=== PATIENT | male | born 1980 | race Hispanic/Latino ===

== ENCOUNTER 2023-05-19 22:35 | Emergency (ER) | payer OTHER, SELFPAY ==
[2023-05-19 22:36] VITALS: BP 156/91
[2023-05-19 22:52] LABS: Urine Albumin Trace (Neg - Trace); Urine Bilirubin Negative (Negative); Urine Character Slightly Cloudy (Clear); Urine Color Yellow; Urine Glucose Negative (Negative); Urine Ketone Negative (Negative); Urine Leukocyte Negative (Negative); Urine Nitrite Negative (Negative); Urine Occult Blood 4+ (Negative); Urine Urobilinogen Negative (Neg - 1+)
[2023-05-19 23:00] LABS: Urine Red Blood Cell >100 /HPF (0-2); Urine Squamous Cell 0-2 /LPF (Few)
[2023-05-19 23:01] LABS: Urine White Cell None Seen /HPF (0-5)
--- NOTE | 2023-05-19 23:19 | ED.GENMED ---
History of Present Illness
General
Chief Complaint: Flank Pain
Source: patient
Exam Limitations: none
Time Seen by Provider: 05/19/23 23:11
Nursing documentation reviewed up to this point in time: agreed with
Travel History
Have you had any contact with someone who has COVID-19?: No
Do you have any symptoms of coronavirus? Fever > 100 degrees, chills, cough, shortness of breath, sore throat, loss of taste or smell, muscle aches, or headache?: No
History of Present Illness
History of Present Illness:
This a pleasant 42-year-old male that presents with left flank pain. He states that the pain began yesterday but has been progressively worsening throughout the day today. At 830 the pain got worse so he came into the emergency department.
Patient states that this pain is similar to previous kidney stones. He has had complicated kidney stones in the past. He was concerned today because of the blood that he was urinating. He did not take any medicine for the pain. Denies fever,
chills does report some nausea without vomiting. He does not smoke but he does vape.
Past History
Past History
ED Past Medical History: Other (Dizziness, ); Negative HTN, Hypercholesterolemia or NIDDM
ED Past Surgical History: Orthopedic (Right shoulder surgery)
Social History
Tobacco: Vaping
Alcohol: None
Drug: None
Personal:
Living: with family
Review of Systems
Review of Systems
Allergies reviewed?: Yes
Other source history: family
All Other Systems: ROS reviewed and negative except as documented in HPI and ROS
Constitutional: Reports no symptoms
EENT: Reports no symptoms
Respiratory: Reports no symptoms
Cardiac: Reports no symptoms
ABD/GI: Reports no symptoms
: Reports bleeding
Musculoskeletal: Reports back pain
Skin: Reports no symptoms
Neurological: Reports no symptoms
Endocrine: Reports no symptoms
Hematologic/Lymphatic: Reports no symptoms
Psychiatric: Reports anxiety
Phy Exam
General Physical Exam
General Presentation: well appearing and no apparent distress
General Skin: warm and dry
General Habitus: normal
General Mental: alert
General Hydration: appears well hydrated
ENT Exam
ENT Exam: EOMI, pharynx normal, neck supple and normocephalic
Eye Exam
Eye Exam: PERRL, cornea clear and conjunctiva normal
Cardiovascular Exam
Cardiovascular Exam: regular rate/rhythm, no edema, no murmur and normal peripheral pulses
Pulmonary Exam
Pulmonary Exam: lungs clear, no respiratory distress, no rales, no crackles, no rhonchi, no stridor, no wheezing and no cough
Gastrointestinal Exam
Gastrointestinal Exam: normal bowel sounds, non tender, soft, no organomegaly, no pulsatile mass and non distended
Neurological Exam
Neurological Exam: alert, oriented x3, no motor deficits and speech normal
Musculoskeletal Exam
Musculoskeletal Exam: full ROM and no edema
Skin Exam
Skin Exam: normal color, warm/dry, no rash and no petechia
Psychiatric Exam
Psychiatric Exam: normal mood/affect
Course
Orders/Labs/Results
Orders:
Orders
05/19/23 22:43
Urinalysis Reflex To Culture Urgent
Date Specimen was Collected: 05/19/23
Time Specimen was Collected: 22:41
Urine Microscopic Reflex Cult Urgent
05/19/23 23:18
CT Abd/pel Without Iv Or Oral Urgent
Comment:
Reason For Exam: Left flank pain, hematuria
0.9% Sodium Chloride 1000 ml [Nss] 1,000 ml IV BOLUS
HYDROmorphone [Dilaudid] 0.5 mg IV NOW STA
Ketorolac [Toradol] 15 mg IV NOW STA
Ondansetron Injectable [Zofran] 4 mg IV NOW STA
05/19/23 23:34
Complete Blood Count/With Diff Urgent
Comprehensive Metabolic Panel Urgent
Abnormal Lab Results
05/19/23 05/19/23
22:43 23:34
Absolute Monos (auto) 0.8 H 10^3/uL
(0.1-0.6)
Sodium 134 L mmol/L
(135-145)
BUN 23 H mg/dl
(9-20)
Glucose 122 H mg/dl
(70-99)
Alkaline Phosphatase 134 H U/L
(38-126)
Ur Occult Blood Reflex 4+ A
(Negative)
Urine RBC >100 A /HPF
(0-2)
05/19/23 23:34
05/19/23 23:34
Vital Signs
Initial and Last Documented VS:
Initial Vital Signs
Temp Pulse Resp BP Pulse Ox
98.8 F 78 18 156/91 98
05/19/23 22:36 05/19/23 22:36 05/19/23 22:36 05/19/23 22:36 05/19/23 22:36
Last Documented Vital Signs
Temp Pulse Resp BP Pulse Ox
98.8 F 78 18 134/111 97
05/19/23 22:36 05/19/23 22:36 05/19/23 22:36 05/20/23 00:00 05/20/23 00:08
*Critical Care Note
Total Time (30-74mins, 75-104mins- exclusive of procedures): Not Applicable
Update Note
Update Note:
CT abdomen/pelvis without contrast
Comparison exam CT abdomen/pelvis 01/03/2020
IMPRESSION:
3 mm obstructing stone distal left ureter resulting in mild left-sided hydronephrosis and hydroureter to the level of the stone. There is mild stranding on the left kidney and ureter which may be due to obstruction and/or infection. Please
correlate with urinalysis.
Case discussed with Dr. Frias at 12:!2 am ET.
ED Attending Note
-
Portions of this chart may have been created with voice recognition software.� Occasional wrong word or��sound alike� substitutions may have occurred due to the inherent limitations of voice recognition software.
Discharge Plan
Departure
Patient Disposition: Home (Routine Discharge)
Date of Disposition: 05/20/23
Time of Disposition: 00:19
Patient with high blood pressure during this ER visit?: Yes
Condition: Good
Discharge Problem:
Kidney stones
Instructions: Flank Pain (DC), How to Strain Your Urine, BLOOD PRESSURE, Narcotic Pain Medication
Prescriptions:
New
oxycodone-acetaminophen [Percocet] 5-325 mg tablet
1 tab PO Q6HPRN PRN (Reason: pain) Qty: 10 0RF
tamsulosin [Flomax] 0.4 mg capsule
0.4 mg PO DAILY Qty: 10 0RF
diclofenac sodium 75 mg tablet,delayed release (DR/EC)
75 mg PO BID Qty: 10 0RF
No Action
azithromycin 250 MG tablet
250 mg PO DAILY Qty: 4 0RF
methylprednisolone [Medrol (Ino)] 4 MG tablets,dose pack
4 tab PO . DIRECT Qty: 1 0RF
oxycodone-acetaminophen 5 MG/325 MG tablet
1 tab PO Q6HPRN PRN (Reason: pain) Qty: 12 0RF
tamsulosin 0.4 MG capsule
0.4 mg PO DAILY Qty: 7 0RF
ondansetron 4 MG tablet,disintegrating
4 mg PO TIDPRN PRN (Reason: nausea/vomiting) Qty: 12 0RF
meclizine [Antivert] 50 mg tablet
50 mg PO BID PRN (Reason: dizziness) Qty: 10 0RF
Referrals:
NONE,* [Family Provider] -
Flynn Katz MD [Active] - As needed
Activity Restrictions/Additional Instructions:
Your prescriptions were sent to the pharmacy you requested.
It was a pleasure meeting you and taking part in your care. We hope for your continued healing and wellness.
Please read discharge instructions in their entirety. However, they are for general education and may not describe your exact diagnosis at discharge. Information on your ER visit and medical conditions were discussed with you along with appropriate
follow up information...
If indicated, please take your medications as instructed and indicated on discharge paperwork.
Please schedule a follow up appointment as directed. Call to schedule an appointment
Please return to the emergency department with ANY change in, persisting, or worsening of symptoms. If any of your symptoms do not improve, or persist, or become more severe within 6-12 hours, please return to the emergency department for further
care.
Please return to the emergency department if you develop a headache, neck pain/stiffness, fever greater than 100.4F, chest pain, shortness of breath, persistent nausea, vomiting, slurred speech, difficulty walking, numbness/tingling, weakness, signs
of infection or any other symptoms that are worrisome to you.
If you have any questions or concerns please do not hesitate to call the Hospital at or E-mail me directly at [email or web address]
Interventions
Interventions:
*Risk Screen - Suicide Last Done: 05/19/23 22:36
*General Assessment Last Done: 05/19/23 22:36
*Neglect/Abuse Screening Last Done: 05/19/23 22:36
ED- Fall Risk Assessment Last Done: 05/20/23 00:08
*ED COVID-19 Vaccine History Last Done: 05/19/23 22:36
*Nursing Disposition Last Done: 05/20/23 00:38
XD-Csodly-Rwzlhtvnxx Assessment Last Done: 05/20/23 00:08
ED-Male Genitourinary Assessment Last Done: 05/20/23 00:08
Discharge Date and Time
Discharge Date/Time: 05/20/23 00:45
[2023-05-19] MEDS: ZOFRAN 4 MG IV (23:37)
[2023-05-19] MEDS: NSS 1000 IV (23:38)
[2023-05-19] MEDS: TORADOL 15 MG IV (23:39)
[2023-05-19] MEDS: DILAUDID 0.5 MG IV (23:41)
[2023-05-19 23:44] LABS: % Basophils 0.4 % (0-2); % Eosinophils 2.1 % (0-6); % Immature Granulocytes 0.3 % (0-0.5); % Lymphocytes 32.4 % (20.5-51.1); % Neutrophils 56.8 % (42.2-75.2); Absolute Eosinophils 0.2 10^3/uL (0-0.7); Absolute Lymphocytes 3.1 10^3/uL (1.2-3.4); Absolute Monocytes 0.8 10^3/uL (0.1-0.6); Absolute Neutrophils 5.5 10^3/uL (1.4-6.5); Hematocrit 40.1 % (39.0-52.0); Hemoglobin 14.5 g/dL (13.0-18.0); Mean Corp Hgb Conc. 36.2 g/dL (33.0-37.0); Mean Corpuscular Hgb 30.2 pg (27.0-31.0); Mean Corpuscular Volume 83.5 fL (80.0-94.0); Nucleated Red Blood Cells % 0 % (-); Platelet Count 229 10^3/uL (130-400); Red Cell Dist. Width 12.9 % (11.5-14.5); White Blood Cell Count 9.6 10^3/uL (4.8-10.8)
[2023-05-19 23:54] VITALS: BP 134/67; BMI 32.9
[2023-05-20] VITALS: BP 134/111
[2023-05-20 00:41] LABS: ALT (SGPT) 36 U/L (0-50); AST (SGOT) 33 U/L (17-59); Albumin 4.1 g/dl (3.5-5.0); Alkaline Phosphatase 134 U/L (38-126); Blood Urea Nitrogen 23 mg/dl (9-20); Calcium 8.8 mg/dl (8.4-10.2); Carbon Dioxide 22 mmol/L (22-30); Chloride 106 mmol/L (98-107); Estimated Creatinine Clearance 93 ml/min; Glucose 122 mg/dl (70-99); Potassium 4.1 mmol/L (3.5-5.1); Sodium 134 mmol/L (135-145); Total Bilirubin 0.5 mg/dl (0.2-1.3); Total Protein 6.6 g/dl (6.3-8.2); eGFR > 60.00
== END 2023-05-20 00:45 | disposition home or self-care (01) ==
LOC: EMR 22:35
PROVIDERS: EMERGENCY PHYSICIAN Student in an Organized Health Care Education/Training Program
DX: N13.2 Hydronephrosis with renal and ureteral calculous obstruction (principal); R10.9 Unspecified abdominal pain; M54.9 Dorsalgia, unspecified; E11.9 Type 2 diabetes mellitus without complications; F17.290 Nicotine dependence, other tobacco product, uncomplicated; Z87.442 Personal history of urinary calculi
CPT/HCPCS: 99285; 96374; 96375 ×2; 96361; 74176; 80053; 81003; 81015; 85025

== ENCOUNTER 2023-05-23 20:45 | Emergency (ER) | payer OTHER, SELFPAY ==
[2023-05-23 20:46] VITALS: BP 166/113
[2023-05-23 21:10] VITALS: BMI 33.8
[2023-05-23 21:27] LABS: % Basophils 0.4 % (0-2); % Immature Granulocytes 0.3 % (0-0.5); % Lymphocytes 38.2 % (20.5-51.1); % Monocytes 6.9 % (1.7-9.3); % Neutrophils 52.2 % (42.2-75.2); Absolute Eosinophils 0.2 10^3/uL (0-0.7); Absolute Lymphocytes 3.5 10^3/uL (1.2-3.4); Absolute Monocytes 0.6 10^3/uL (0.1-0.6); Absolute Neutrophils 4.7 10^3/uL (1.4-6.5); Hematocrit 41.2 % (39.0-52.0); Hemoglobin 14.8 g/dL (13.0-18.0); Mean Corp Hgb Conc. 35.9 g/dL (33.0-37.0); Mean Corpuscular Volume 83.4 fL (80.0-94.0); Mean Platelet Volume 8.9 fL (7.4-10.4); Nucleated Red Blood Cells % 0 % (-); Platelet Count 246 10^3/uL (130-400); Red Blood Cell Count 4.94 10^6/uL (4.70-6.10); White Blood Cell Count 9.1 10^3/uL (4.8-10.8)
[2023-05-23 21:50] LABS: Troponin I < 0.012 ng/ml
[2023-05-23 21:58] LABS: ALT (SGPT) 31 U/L (0-50); AST (SGOT) 32 U/L (17-59); Albumin 3.9 g/dl (3.5-5.0); Alkaline Phosphatase 110 U/L (38-126); Blood Urea Nitrogen 17 mg/dl (9-20); Calcium 9.2 mg/dl (8.4-10.2); Carbon Dioxide 21 mmol/L (22-30); Chloride 101 mmol/L (98-107); Estimated Creatinine Clearance 100 ml/min; Glucose 196 mg/dl (70-99); Sodium 133 mmol/L (135-145); Total Bilirubin 0.5 mg/dl (0.2-1.3); Total Protein 6.7 g/dl (6.3-8.2); eGFR > 60.00
[2023-05-23 22:00] VITALS: BP 139/78
[2023-05-23] MEDS: NSS 1000 IV (22:45)
[2023-05-23 22:53] LABS: Urine Albumin Negative (Neg - Trace); Urine Bilirubin Negative (Negative); Urine Character Clear (Clear); Urine Color Yellow; Urine Glucose Negative (Negative); Urine Ketone Negative (Negative); Urine Leukocyte Negative (Negative); Urine Nitrite Negative (Negative); Urine Occult Blood 1+ (Negative); Urine Urobilinogen Negative (Neg - 1+)
[2023-05-23 23:00] VITALS: BP 132/87
[2023-05-23 23:00] LABS: Urine Squamous Cell 0-2 /LPF (Few)
[2023-05-23 23:01] LABS: Urine White Cell None Seen /HPF (0-5)
[2023-05-23 23:24] VITALS: BP 137/85
[2023-05-23 23:25] VITALS: BP 150/96
[2023-05-23 23:27] VITALS: BP 132/87; BP 137/85; BP 150/96; PULSE 62; PULSE 69; PULSE 74
--- NOTE | 2023-05-23 23:47 | ED.GENMED ---
History of Present Illness
General
Chief Complaint: Dizziness
Source: patient and previous hospital records (ED visit February 2023 for somewhat very similar complaint. Unremarkable workup at that time including EKG, labs/troponin, CT of the head.)
Exam Limitations: none
Time Seen by Provider: 05/23/23 23:06
Nursing documentation reviewed up to this point in time: agreed with
Travel History
Have you had any contact with someone who has COVID-19?: No
Do you have any symptoms of coronavirus? Fever > 100 degrees, chills, cough, shortness of breath, sore throat, loss of taste or smell, muscle aches, or headache?: No
History of Present Illness
History of Present Illness:
This is a 42-year-old gentleman who has history of intermittent positional dizziness, as well as history of kidney stones. He takes no medicines on a daily basis but has been prescribed meclizine in the past for as needed dizziness.
Recent ED visit May 19 with complaints of left flank pain similar to previous renal colic. Found to have a 3 mm stone left UVJ with mild hydronephrosis. He was prescribed short course of Flomax, diclofenac, Percocet but patient states his [facility]
never alerted him that prescriptions were ready thus never picked these up. Intermittent left flank pain persisted over several days but has since resolved over the past 24 hours. He is unsure if he passed the stone but has remained pain-free and
comfortable at least over the past 24 hours.
Tonight however while sitting at the kitchen table he developed somewhat abrupt onset of a frontal headache which he describes as mild pressure, heat sensation that then progressed down his body with a sense of feeling lightheaded like he was going
to pass out. He admits to feeling somewhat jittery but no sense of spinning nor movement. He admits to feeling quite anxious, he did not pass out nor fall but knew that he 'had to get to the hospital' with this warm sensation that traveled from
his head down his body he did note a sense of chest pressure but no palpitations, no neck nor back pain, no coughing or shortness of breath. He denies diaphoresis nor pallor.
Since arrival to the ED symptoms have resolved without return.
He does admit to only consuming 1 meal today, lunch around 2 to 3 PM. He also notes he generally only eats once per day usually dinnertime.
He was evaluated in this ED March 07, 2023 with somewhat very similar complaint but states tonight's episode seemed much more intense but very similar to the episode that occurred in February. ED visit at that time was unremarkable including
unremarkable CT of the head, laboratory studies, troponins, EKG. He was thought to perhaps have an episode of vertigo and was prescribed meclizine. Symptoms have not recurred until tonight.
Current episode seems much different from previous episodes of vertigo.
Past History
Past History
ED Past Medical History: Other (Dizziness, kidney stones); Negative HTN, Hypercholesterolemia or NIDDM
ED Past Surgical History: Orthopedic (Right shoulder surgery)
Social History
Tobacco: Vaping
Alcohol: None
Drug: None
Personal:
Living: with family
Employment: Employed
Family History
Family History: Other (Noncontributory)
Phy Exam
Physical Exam
Physical Exam:
GENERAL: 42-year-old gentleman appears his stated age, bright alert, pleasant, appears in no acute distress. and child are accompanying.
EYE: pupils equal and reactive. Extraocular muscles intact. Anicteric
NECK: Supple, nontender, no meningismus, no significant adenopathy.
ENT: oral mucosa is moist. No rhinorrhea. TMs are clear bilaterally.
CARDIAC: Regular rate and rhythm. no murmur.
LUNGS: Clear breath sounds bilaterally, no acute respiratory distress, no wheezes/rales/rhonchi
ABDOMEN: Soft, nondistended, without focal tenderness, no r/g, no cvat. normoactive BS.
NEUROLOGICAL: Alert and oriented x3, no focal neuro deficits. Gait is steady.
SKIN: Warm and dry, normal color, skin intact. No rash.
MUSCULOSKELETAL: No C/C/E. peripheral pulses are full and equal b/l. No palpable tenderness.
PSYCH: Normal and appropriate interaction.
Course
Orders/Labs/Results
Orders:
Orders
05/23/23 20:49
Electrocardiogram (*1) Urgent
Reason for Study: Vertigo / Dizzy
EKG- Treatment ONCE
05/23/23 21:20
CMP [Comprehensive Metabolic Panel] Urgent
Complete Blood Count/With Diff Urgent
Troponin I Urgent
05/23/23 22:43
0.9% Sodium Chloride 1000 ml [Nss] 1,000 ml IV BOLUS
05/23/23 22:46
Urinalysis Reflex To Culture Urgent
Date Specimen was Collected: 05/23/23
Time Specimen was Collected: 22:43
Urine Microscopic Reflex Cult Urgent
05/23/23 23:23
Orthostatic VS- Treatment ONCE
Abnormal Lab Results
05/23/23 05/23/23
21:20 22:46
Absolute Lymphs (auto) 3.5 H 10^3/uL
(1.2-3.4)
Sodium 133 L mmol/L
(135-145)
Carbon Dioxide 21 L mmol/L
(22-30)
Glucose 196 H mg/dl
(70-99)
Ur Occult Blood Reflex 1+ A
(Negative)
Urine RBC 3-6 A /HPF
(0-2)
05/23/23 21:20
05/23/23 21:20
Vital Signs
Initial and Last Documented VS:
Initial Vital Signs
Temp Pulse Resp BP Pulse Ox
98 F 112 24 166/113 100
05/23/23 20:46 05/23/23 20:46 05/23/23 20:46 05/23/23 20:46 05/23/23 20:46
Last Documented Vital Signs
Temp Pulse Resp BP Pulse Ox
97.8 F 78 22 159/89 99
05/23/23 22:51 05/24/23 00:00 05/24/23 00:00 05/24/23 00:00 05/24/23 00:00
MDM/Problems Addressed
Differential Diagnosis Includes:
Patient presents after an episode of what he describes as near syncope while sitting at the kitchen table.
There is no falls nor loss of consciousness and symptoms quickly abated.
Very similar episode which prompted ED visit February 2023.
Concern for vasovagal episode, arrhythmia, vertigo, ACS, GERD, hypoglycemia.
Patient does admit to only consuming 1 meal today at 3 PM. Brief/resolved hypoglycemia could certainly be cause for the symptoms.
Thus far labs are unremarkable, unchanged from previous. Mildly elevated glucose of 196�but patient currently asymptomatic, unsure as to blood sugar level during symptomatology.
Troponin is negative.
Urinalysis shows scant microscopic blood�3-6 RBCs but no evidence of UTI.
EKG shows normal sinus rhythm, normal axis, normal indices, similar and unchanged from previous March 07, 2023.
Monitor shows normal sinus rhythm without ectopy.
Will check orthostatic vital signs, assess for potential orthostasis.
Patient has no focal neurologic deficits. No indication for CT of the head.
I would recommend increasing oral intake to at least 3 small meals per day to hopefully avoid potential hypoglycemia in the future.
There is still some concern for potential arrhythmia thus patient will be referred to cardiology for outpatient follow-up.
He currently lacks PCP and he will be referred to our family practice residency clinic for follow-up.
Chronic conditions affecting care: Other (Prior history of vertigo)
*Pulse Oximetry
Patient hypoxic: no
*EKG
Interpreted by ED Provider?: Yes
Interpretation: normal
Comparison EKG: no changes (Unchanged from previous February 2023)
Rate: normal
Rhythm: sinus
Curtis: normal axis
Interval: normal interval
QRS Pattern: normal QRS
Ischemia: no ischemia
*[employer] Interpretation
Rate: normal
Interpretation: normal
Rhythm: sinus
*Critical Care Note
Total Time (30-74mins, 75-104mins- exclusive of procedures): Not Applicable
ED Attending Note
-
Portions of this chart may have been created with voice recognition software.� Occasional wrong word or��sound alike� substitutions may have occurred due to the inherent limitations of voice recognition software.
Discharge Plan
Departure
Patient Disposition: Home (Routine Discharge)
Date of Disposition: 05/24/23
Time of Disposition: 00:10
Patient with high blood pressure during this ER visit?: Yes
Condition: Good
Discharge Problem:
Near syncope
Instructions: Near Fainting (DC), BLOOD PRESSURE
Prescriptions:
No Action
No Current Medications
0
Referrals:
[facility] [Provider Group] - Call in 1-3 days for appt
Catalino Delgado, [Active] - Call in 1-3 days for appt
NONE,* [Family Provider] -
Interventions
Interventions:
*Risk Screen - Suicide Last Done: 05/23/23 20:46
*General Assessment Last Done: 05/23/23 21:11
*Neglect/Abuse Screening Last Done: 05/23/23 20:46
ED- Fall Risk Assessment Last Done: 05/23/23 21:36
*ED COVID-19 Vaccine History Last Done: 05/23/23 21:11
*Nursing Disposition Last Done: 05/24/23 00:20
ED- Pulmonary Assessment Last Done: 05/23/23 22:53
ED- Neurological Assessment Last Done: 05/23/23 22:53
ED- Cardiac Assessment Last Done: 05/23/23 22:53
ED Swallowing Screen Last Done: 05/23/23 22:52
Discharge Date and Time
Discharge Date/Time: 05/24/23 00:20
[2023-05-24] VITALS: BP 159/89
== END 2023-05-24 00:20 | disposition home or self-care (01) ==
LOC: EMR 20:45
PROVIDERS: Emergency Medicine; EMERGENCY PHYSICIAN Emergency Medicine
DX: R55 Syncope and collapse (principal); R51.9 Headache, unspecified; R42 Dizziness and giddiness; R07.89 Other chest pain; R03.0 Elevated blood-pressure reading, without diagnosis of hypertension; E11.649 Type 2 diabetes mellitus with hypoglycemia without coma; F17.290 Nicotine dependence, other tobacco product, uncomplicated; Z87.442 Personal history of urinary calculi
CPT/HCPCS: 99284; 96360; 80053; 81003; 81015; 84484; 85025; 93005

== ENCOUNTER 2023-06-14 22:17 | Emergency (ER) | payer OTHER, SELFPAY ==
[2023-06-14 22:19] VITALS: BP 167/103
[2023-06-14 22:36] LABS: % Basophils 0.4 % (0-2); % Eosinophils 2.3 % (0-6); % Immature Granulocytes 0.4 % (0-0.5); % Lymphocytes 29.2 % (20.5-51.1); % Monocytes 6.6 % (1.7-9.3); % Neutrophils 61.1 % (42.2-75.2); Absolute Eosinophils 0.2 10^3/uL (0-0.7); Absolute Lymphocytes 2.6 10^3/uL (1.2-3.4); Absolute Monocytes 0.6 10^3/uL (0.1-0.6); Absolute Neutrophils 5.5 10^3/uL (1.4-6.5); Hemoglobin 14.7 g/dL (13.0-18.0); Mean Corp Hgb Conc. 35.9 g/dL (33.0-37.0); Mean Corpuscular Hgb 29.5 pg (27.0-31.0); Mean Corpuscular Volume 82.3 fL (80.0-94.0); Mean Platelet Volume 8.9 fL (7.4-10.4); Nucleated Red Blood Cells % 0 % (-); Platelet Count 242 10^3/uL (130-400); Red Blood Cell Count 4.98 10^6/uL (4.70-6.10); Red Cell Dist. Width 12.7 % (11.5-14.5)
[2023-06-14 22:51] LABS: ALT (SGPT) 62 U/L (0-50); AST (SGOT) 41 U/L (17-59); Albumin 4.2 g/dl (3.5-5.0); Alkaline Phosphatase 141 U/L (38-126); Blood Urea Nitrogen 17 mg/dl (9-20); Calcium 9.2 mg/dl (8.4-10.2); Carbon Dioxide 23 mmol/L (22-30); Chloride 105 mmol/L (98-107); Glucose 279 mg/dl (70-99); Potassium 3.9 mmol/L (3.5-5.1); Sodium 134 mmol/L (135-145); Total Bilirubin 0.3 mg/dl (0.2-1.3); Total Protein 6.8 g/dl (6.3-8.2); eGFR > 60.00
[2023-06-14 23:40] VITALS: BP 135/84
[2023-06-15 00:05] VITALS: BP 142/82
[2023-06-15 00:07] VITALS: BMI 32.6
--- NOTE | 2023-06-15 00:57 | ED.GENMED ---
History of Present Illness
General
Chief Complaint: Dizziness
Source: patient
Exam Limitations: none
Time Seen by Provider: 06/14/23 23:38
Travel History
Have you had any contact with someone who has COVID-19?: No
Do you have any symptoms of coronavirus? Fever > 100 degrees, chills, cough, shortness of breath, sore throat, loss of taste or smell, muscle aches, or headache?: No
History of Present Illness
History of Present Illness:
This is a 42 year old male that comes in with c/o dizziness. States that he stopped vaping today and used a Nicotine patch. State that he put this on at 5pm. Then around 9pm he started to feel hot and felt like he was going to pass out. States that
this happened before and he was seen here. States that he was lightheaded and his heart rate went up to 126. States that he is feeling better at this time. Denies any fever, chills, chest pain, SOB, abd pain, nausea, vomiting, diarrhea, headache,
urinary burning.
Past History
Past History
ED Past Medical History: HTN and Other ( kidney stones, Vertigo, ); Negative Hypercholesterolemia or NIDDM
ED Past Surgical History: Orthopedic (Right shoulder surgery)
Social History
Tobacco: Former smoker
Alcohol: None
Drug: None
Personal:
Living: with family
Employment: Employed
Family History
Family History: Other (Noncontributory)
Review of Systems
Review of Systems
All Other Systems: ROS reviewed and negative except as documented in HPI and ROS
Constitutional: Reports no symptoms; Denies fever or chills
EENT: Reports no symptoms
Respiratory: Reports no symptoms; Denies cough or trouble breathing
Cardiac: Reports no symptoms; Denies chest pain
ABD/GI: Denies abdominal pain, nausea, vomiting or diarrhea
: Reports no symptoms; Denies dysuria, frequency or urgency
Musculoskeletal: Reports no symptoms
Skin: Reports no symptoms
Neurological: Reports other (Lightheaded); Denies headache
Psychiatric: Reports no symptoms
Phy Exam
General Physical Exam
General Presentation: well appearing and no apparent distress
General age: appears stated age
General Skin: warm and dry
General Habitus: normal
General Mental: alert
General Hydration: appears well hydrated
ENT Exam
ENT Exam: TM's normal, pharynx normal and neck supple
Eye Exam
Eye Exam: EOMI
Cardiovascular Exam
Cardiovascular Exam: regular rate/rhythm, no edema, no murmur and normal peripheral pulses
Pulmonary Exam
Pulmonary Exam: lungs clear, no respiratory distress, no rales, chest non tender, no crackles, no rhonchi, no wheezing and no cough
Gastrointestinal Exam
Gastrointestinal Exam: normal bowel sounds, non tender, soft, no organomegaly, no pulsatile mass and non distended
Musculoskeletal Exam
Musculoskeletal Exam: full ROM and no edema
Skin Exam
Skin Exam: normal color, warm/dry, no rash and no petechia
Psychiatric Exam
Psychiatric Exam: normal mood/affect
Course
Orders/Labs/Results
Orders:
Orders
06/14/23 22:23
EKG [Electrocardiogram (*1)] Urgent
Reason for Study: Vertigo / Dizzy
EKG- Treatment ONCE
06/14/23 22:29
CBC/With Diff [Complete Blood Count/With Diff] Urgent
CMP [Comprehensive Metabolic Panel] Urgent
Abnormal Lab Results
06/14/23
22:29
Sodium 134 L mmol/L
(135-145)
Glucose 279 H mg/dl
(70-99)
ALT 62 H U/L
(0-50)
Alkaline Phosphatase 141 H U/L
(38-126)
06/14/23 22:29
06/14/23 22:29
Glucose nonfasting. ALt elevation. Alk phos elevation.
Vital Signs
Initial and Last Documented VS:
Initial Vital Signs
Temp Pulse Resp BP Pulse Ox
97.5 F 114 18 167/103 98
06/14/23 22:19 06/14/23 22:19 06/14/23 22:19 06/14/23 22:19 06/14/23 22:19
Last Documented Vital Signs
Temp Pulse Resp BP Pulse Ox
97.5 F 82 20 142/82 97
06/14/23 22:19 06/15/23 00:05 06/15/23 00:05 06/15/23 00:05 06/15/23 00:07
MDM/Problems Addressed
Differential Diagnosis Includes:
Vertigo, Reaction to nicotine patch
MDM/Problems Addressed:
This is a 42 year old male that comes in with c/o dizziness. States that he used a nicotine patch for the first time tonight. State that around 9pm he became hot and and dizzy and felt like he was going to pass out. States that he has been here
before for this.
Will check labs, ECG and watch patient on the monitor as he is feeling better at this time.
back into see patient. States that he is feeling good. Patient BP at this time is 113/79 and his HR is 79. Explained to patient that if he uses the nicotine patch again and he starts to get flushed and dizzy he should avoid there use. Patient to
follow up with the family doctor for recheck of his blood sugar. States that he has just eaten a big piece of bread before coming. Patient to return with any concerns.
Chronic conditions affecting care:
Vertigo
Acute Exacerbation and/or Progression of Chronic Illness:
Vertigo
*Pulse Oximetry
Patient hypoxic: no
*EKG
Interpreted by ED Provider?: Yes
Heart Rate: 95
Rate: normal
Rhythm: sinus
Dunbar: left axis deviation
Interval: normal interval
QRS Pattern: normal QRS
Ischemia: no ischemia
*[employer] Interpretation
Rate: normal
Heart Rate: 92
Rhythm: sinus
*Critical Care Note
Total Time (30-74mins, 75-104mins- exclusive of procedures): Not Applicable
ED Attending Note
-
Portions of this chart may have been created with voice recognition software.� Occasional wrong word or��sound alike� substitutions may have occurred due to the inherent limitations of voice recognition software.
Discharge Plan
Departure
Patient Disposition: Home (Routine Discharge)
Date of Disposition: 06/15/23
Time of Disposition: 01:09
Patient with high blood pressure during this ER visit?: No
Condition: Good
Covid-19: Not Applicable
Discharge Problem:
Dizziness
Instructions: Dizziness
Prescriptions:
No Action
No Current Medications
0
Referrals:
Sonia Falcon MD, Resident [Family Provider] - Follow up in 2-3 days
Activity Restrictions/Additional Instructions:
As discussed, your blood work shows that your blood sugar is elevated. Please increase your water intake to 8-8oz glasses daily. Please follow up with the family doctor as they may wish to go a fasting blood sugar. If you use the nicotine patch
again and you feel flushed or dizzy, you need to stop the usage of this. IF YOU HAVE ANY OTHER CONCERNS PLEASE RETURN TO THE EMERGENCY ROOM.
Interventions
Interventions:
*Risk Screen - Suicide Last Done: 06/14/23 22:19
*General Assessment Last Done: 06/14/23 22:19
*Neglect/Abuse Screening Last Done: 06/14/23 22:19
ED- Fall Risk Assessment Last Done: 06/15/23 00:07
*ED COVID-19 Vaccine History Last Done: 06/14/23 22:19
ED- Pulmonary Assessment Last Done: 06/15/23 00:07
ED- Neurological Assessment Last Done: 06/15/23 00:07
ED- Cardiac Assessment Last Done: 06/15/23 00:07
ED Swallowing Screen Last Done: 06/15/23 00:07
[2023-06-15 01:00] VITALS: BP 113/70
== END 2023-06-15 01:40 | disposition home or self-care (01) ==
LOC: EMR 22:17
PROVIDERS: Emergency Medicine; EMERGENCY PHYSICIAN Student in an Organized Health Care Education/Training Program; FAMILY PHYSICIAN Student in an Organized Health Care Education/Training Program
DX: R42 Dizziness and giddiness (principal); I10 Essential (primary) hypertension; Z87.442 Personal history of urinary calculi; Z87.891 Personal history of nicotine dependence
CPT/HCPCS: 99283; 80053; 85025; 93005

== ENCOUNTER 2023-06-16 12:06 | Emergency (ER) | payer OTHER, SELFPAY ==
[2023-06-16 12:30] VITALS: BP 161/90
[2023-06-16 12:48] LABS: % Basophils 0.5 % (0-2); % Eosinophils 1.3 % (0-6); % Immature Granulocytes 0.3 % (0-0.5); % Lymphocytes 17.6 % (20.5-51.1); % Monocytes 6.2 % (1.7-9.3); % Neutrophils 74.1 % (42.2-75.2); Absolute Basophils 0.1 10^3/uL (0-0.2); Absolute Eosinophils 0.1 10^3/uL (0-0.7); Absolute Lymphocytes 1.9 10^3/uL (1.2-3.4); Absolute Monocytes 0.7 10^3/uL (0.1-0.6); Absolute Neutrophils 8.2 10^3/uL (1.4-6.5); Hematocrit 44.9 % (39.0-52.0); Hemoglobin 15.5 g/dL (13.0-18.0); Mean Corp Hgb Conc. 34.5 g/dL (33.0-37.0); Mean Corpuscular Hgb 29.4 pg (27.0-31.0); Mean Corpuscular Volume 85.2 fL (80.0-94.0); Mean Platelet Volume 9.2 fL (7.4-10.4); Nucleated Red Blood Cells % 0 % (-); Platelet Count 243 10^3/uL (130-400); Red Blood Cell Count 5.27 10^6/uL (4.70-6.10); Red Cell Dist. Width 12.5 % (11.5-14.5)
[2023-06-16 13:03] LABS: ALT (SGPT) 64 U/L (0-50); AST (SGOT) 44 U/L (17-59); Albumin 4.5 g/dl (3.5-5.0); Alkaline Phosphatase 112 U/L (38-126); Blood Urea Nitrogen 18 mg/dl (9-20); Calcium 9.2 mg/dl (8.4-10.2); Carbon Dioxide 24 mmol/L (22-30); Chloride 104 mmol/L (98-107); Glucose 181 mg/dl (70-99); Potassium 4.3 mmol/L (3.5-5.1); Sodium 135 mmol/L (135-145); Total Bilirubin 0.5 mg/dl (0.2-1.3); Total Protein 7.3 g/dl (6.3-8.2); eGFR > 60.00
[2023-06-16 13:12] LABS: Troponin I < 0.012 ng/ml
--- NOTE | 2023-06-16 15:08 | ED.GENMED ---
History of Present Illness
General
Chief Complaint: Blood Pressure Problem
Source: patient
Exam Limitations: none
Time Seen by Provider: 06/16/23 15:07
Travel History
Have you had any contact with someone who has COVID-19?: No
Do you have any symptoms of coronavirus? Fever > 100 degrees, chills, cough, shortness of breath, sore throat, loss of taste or smell, muscle aches, or headache?: No
History of Present Illness
History of Present Illness:
42-year-old male presents for reevaluation for similar symptoms. He describes a rapid elevation of heart rate and blood pressure and sensation of passing out. No associated chest pain. No shortness of breath nausea or diaphoresis. He was here
several days ago for the same. He was due to see the family doctor today but decided to come here instead. No fever. He states since being here everything is to return to baseline. No other complaints at
Past History
Past History
ED Past Medical History: HTN and Other ( kidney stones, Vertigo, ); Negative Hypercholesterolemia or NIDDM
ED Past Surgical History: Orthopedic (Right shoulder surgery)
Social History
Tobacco: Former smoker
Alcohol: None
Drug: None
Personal:
Living: with family
Employment: Employed
Family History
Family History: Other (Noncontributory)
Phy Exam
Physical Exam
Physical Exam:
General: Well-appearing male no acute respiratory distress
HEENT: Normocephalic atraumatic
Heart: Regular rate and rhythm no murmurs
Lungs: Clear to auscultation bilaterally no wheezing
Abdomen is soft nontender
Extremities: No cyanosis
Course
Orders/Labs/Results
Orders:
Orders
06/16/23 12:36
Electrocardiogram (*1) Urgent
Reason for Study: Chest Pain
EKG- Treatment ONCE
06/16/23 12:40
Complete Blood Count/With Diff Urgent
Comprehensive Metabolic Panel Urgent
Troponin I Urgent
Abnormal Lab Results
06/16/23
12:40
WBC 11.0 H 10^3/uL
(4.8-10.8)
Absolute Neuts (auto) 8.2 H 10^3/uL
(1.4-6.5)
Absolute Monos (auto) 0.7 H 10^3/uL
(0.1-0.6)
Lymphocytes % 17.6 L %
(20.5-51.1)
Glucose 181 H mg/dl
(70-99)
ALT 64 H U/L
(0-50)
06/16/23 12:40
06/16/23 12:40
Vital Signs
Initial and Last Documented VS:
Initial Vital Signs
Temp Pulse Resp BP Pulse Ox
98.7 F 92 18 161/90 98
06/16/23 12:30 06/16/23 12:30 06/16/23 12:30 06/16/23 12:30 06/16/23 12:30
Last Documented Vital Signs
Temp Pulse Resp BP Pulse Ox
98.7 F 79 16 126/79 98
06/16/23 12:30 06/16/23 15:15 06/16/23 15:15 06/16/23 15:15 06/16/23 12:30
MDM/Problems Addressed
Differential Diagnosis Includes:
Palpitations and elevated blood pressure at home. No evidence of arrhythmia here. EKG shows sinus rhythm. He is sinus rhythm on the monitor with a rate in the 70s. Blood pressure now 126/91. Labs reviewed without significant finding other than
elevated blood sugar. He currently does not take anything for his elevated blood sugar. Today it is 186 which is better than what it was 2 days ago. Recommended close follow-up with family doctor. No indication for any further intervention at
this time. No PE risk factors.
*Critical Care Note
Total Time (30-74mins, 75-104mins- exclusive of procedures): Not Applicable
ED Attending Note
-
Portions of this chart may have been created with voice recognition software.� Occasional wrong word or��sound alike� substitutions may have occurred due to the inherent limitations of voice recognition software.
Discharge Plan
Departure
Patient Disposition: Home (Routine Discharge)
Date of Disposition: 06/16/23
Time of Disposition: 15:35
Patient with high blood pressure during this ER visit?: No
Discharge Problem:
Heart palpitations
Instructions: Heart Palpitations
Prescriptions:
No Action
. Bp Pill
5 mg PO DAILY
Referrals:
Sonia Falcon MD, Resident [Family Provider] -
Activity Restrictions/Additional Instructions:
Continue current medications. Return for worsening symptoms otherwise continue to follow-up with family doctor
Interventions
Interventions:
*Risk Screen - Suicide Last Done: 06/16/23 12:34
*General Assessment Last Done: 06/16/23 12:34
*Neglect/Abuse Screening Last Done: 06/16/23 12:34
ED- Cardiac Assessment Last Done: 06/16/23 14:30
ED- Neurological Assessment Last Done: 06/16/23 15:13
ED- Pulmonary Assessment Last Done: 06/16/23 15:13
[2023-06-16 15:15] VITALS: BP 126/79
== END 2023-06-16 15:45 | disposition home or self-care (01) ==
LOC: EMR 12:06
PROVIDERS: Emergency Medicine; EMERGENCY PHYSICIAN Student in an Organized Health Care Education/Training Program; FAMILY PHYSICIAN Student in an Organized Health Care Education/Training Program
DX: R00.2 Palpitations (principal); I10 Essential (primary) hypertension; Z87.891 Personal history of nicotine dependence
CPT/HCPCS: 99283; 80053; 84484; 85025; 93005

== ENCOUNTER 2023-07-06 19:09 | Emergency (ER) | payer OTHER, SELFPAY ==
[2023-07-06 19:19] VITALS: BP 135/87
[2023-07-06 19:53] LABS: % Basophils 0.4 % (0-2); % Eosinophils 1.9 % (0-6); % Immature Granulocytes 0.3 % (0-0.5); % Lymphocytes 34.4 % (20.5-51.1); % Monocytes 8.2 % (1.7-9.3); % Neutrophils 54.8 % (42.2-75.2); Absolute Eosinophils 0.1 10^3/uL (0-0.7); Absolute Lymphocytes 2.5 10^3/uL (1.2-3.4); Absolute Monocytes 0.6 10^3/uL (0.1-0.6); Absolute Neutrophils 3.9 10^3/uL (1.4-6.5); Hematocrit 41.3 % (39.0-52.0); Hemoglobin 14.3 g/dL (13.0-18.0); Mean Corp Hgb Conc. 34.6 g/dL (33.0-37.0); Mean Corpuscular Volume 83.8 fL (80.0-94.0); Mean Platelet Volume 9.1 fL (7.4-10.4); Nucleated Red Blood Cells % 0 % (-); Platelet Count 258 10^3/uL (130-400); Red Blood Cell Count 4.93 10^6/uL (4.70-6.10); Red Cell Dist. Width 12.7 % (11.5-14.5); White Blood Cell Count 7.2 10^3/uL (4.8-10.8)
[2023-07-06 20:08] LABS: ALT (SGPT) 27 U/L (0-50); AST (SGOT) 33 U/L (17-59); Albumin 4.3 g/dl (3.5-5.0); Alkaline Phosphatase 90 U/L (38-126); Blood Urea Nitrogen 15 mg/dl (9-20); Calcium 9.8 mg/dl (8.4-10.2); Carbon Dioxide 28 mmol/L (22-30); Chloride 100 mmol/L (98-107); Glucose 96 mg/dl (70-99); Potassium 4.6 mmol/L (3.5-5.1); Sodium 137 mmol/L (135-145); Total Bilirubin 0.4 mg/dl (0.2-1.3); Total Protein 6.8 g/dl (6.3-8.2); eGFR > 60.00
[2023-07-06 20:17] LABS: Troponin I < 0.012 ng/ml
[2023-07-06 20:25] VITALS: BP 127/70
[2023-07-06 20:27] VITALS: BMI 34.6
[2023-07-06 21:00] VITALS: BP 115/71
--- NOTE | 2023-07-06 21:04 | ED.GENMED ---
History of Present Illness
General
Chief Complaint: Dizziness
Source: patient
Exam Limitations: none
Time Seen by Provider: 07/06/23 20:10
Travel History
Have you had any contact with someone who has COVID-19?: No
Do you have any symptoms of coronavirus? Fever > 100 degrees, chills, cough, shortness of breath, sore throat, loss of taste or smell, muscle aches, or headache?: No
History of Present Illness
History of Present Illness:
This is a 42 year old male that comes in with c/o chest discomfort. States that he is getting since this morning this electrical shock that goes through his left chest. States that he has had this all day since this morning. Patient was also see by
his PCP today and started on Metoprolol. States that he just took his first dose. Patient also c/o having a stool before he came and there was bright red blood in the toilet. Patient took a Picture and his stool was brown with slight bright red
blood in the toilet. Denies any fever, chills, SOB, abd pain, nausea, vomiting, diarrhea, headache, dizziness, urinary burning.
Past History
Past History
ED Past Medical History: HTN and Other ( kidney stones, Vertigo, ); Negative Hypercholesterolemia or NIDDM
ED Past Surgical History: Orthopedic (Right shoulder surgery)
Social History
Tobacco: Vaping
Alcohol: None
Drug: None
Personal:
Living: with family
Employment: Employed
Family History
Family History: Other (Noncontributory)
Review of Systems
Review of Systems
All Other Systems: ROS reviewed and negative except as documented in HPI and ROS
Constitutional: Reports no symptoms; Denies fever or chills
EENT: Reports no symptoms
Respiratory: Reports no symptoms; Denies cough or trouble breathing
Cardiac: Reports chest pain
ABD/GI: Denies abdominal pain, nausea, vomiting or diarrhea
: Reports no symptoms; Denies dysuria, frequency or urgency
Musculoskeletal: Reports no symptoms
Skin: Reports no symptoms
Neurological: Reports no symptoms; Denies dizzy or headache
Psychiatric: Reports no symptoms
Phy Exam
General Physical Exam
General Presentation: well appearing and no apparent distress
General age: appears stated age
General Skin: warm and dry
General Habitus: normal
General Mental: alert
General Hydration: appears well hydrated
ENT Exam
ENT Exam: TM's normal, pharynx normal and neck supple
Eye Exam
Eye Exam: EOMI
Cardiovascular Exam
Cardiovascular Exam: regular rate/rhythm, no edema, no murmur and normal peripheral pulses
Pulmonary Exam
Pulmonary Exam: lungs clear, no respiratory distress, no rales, chest non tender, no crackles, no rhonchi, no wheezing and no cough
Gastrointestinal Exam
Gastrointestinal Exam: normal bowel sounds, non tender, soft, no organomegaly, no pulsatile mass, non distended and other (Rectal area negative for any obvious hemorrhoids. )
Musculoskeletal Exam
Musculoskeletal Exam: full ROM and no edema
Skin Exam
Skin Exam: normal color, warm/dry, no rash and no petechia
Course
Orders/Labs/Results
Orders:
Orders
07/06/23 19:22
EKG [Electrocardiogram (*1)] Urgent
Reason for Study: Vertigo / Dizzy
EKG- Treatment ONCE
07/06/23 19:32
CBC/With Diff [Complete Blood Count/With Diff] Urgent
CMP [Comprehensive Metabolic Panel] Urgent
Troponin I Urgent
07/06/23 19:32
07/06/23 19:32
Labs unremarkable. Troponin <0.012
Vital Signs
Initial and Last Documented VS:
Initial Vital Signs
Temp Pulse Resp BP Pulse Ox
98.4 F 81 18 135/87 98
07/06/23 19:19 07/06/23 19:19 07/06/23 19:19 07/06/23 19:19 07/06/23 19:19
Last Documented Vital Signs
Temp Pulse Resp BP Pulse Ox
98.4 F 81 18 135/87 98
07/06/23 19:19 07/06/23 19:19 07/06/23 19:19 07/06/23 19:19 07/06/23 20:27
MDM/Problems Addressed
Differential Diagnosis Includes:
Hemorrhoids, Musculoskeletal chest pain.
MDM/Problems Addressed:
This is a 42 year old male that comes in with Multiple complaints. States that he has had this electrical like shock that goes through his left chest since this morning. States that he also had bright red blood in the toilet after having a BM before
he came. Patient saw his PCP today and was started on Metoprolol.
Will check labs. Explained to patient that his blood work is normal and that there is no obvious hemorrhoids but he may have internal hemorrhoids that caused that bright red blood. Patient has not abd pain. Explained that his Troponin is also
normal. Patient an follow up with the PCP for further evaluation.
Chronic conditions affecting care:
NA
Acute Exacerbation and/or Progression of Chronic Illness:
NA
*Pulse Oximetry
Patient hypoxic: no
*EKG
Interpreted by ED Provider?: Yes
Heart Rate: 69
Rate: normal
Rhythm: sinus
[place]orset: left axis deviation
Interval: normal interval
QRS Pattern: normal QRS
Ischemia: no ischemia
*Doctor Of Veterinary Medicine Interpretation
Rate: Doctor Of Veterinary Medicine- N/A
*Critical Care Note
Total Time (30-74mins, 75-104mins- exclusive of procedures): Not Applicable
ED Attending Note
-
Portions of this chart may have been created with voice recognition software.� Occasional wrong word or��sound alike� substitutions may have occurred due to the inherent limitations of voice recognition software.
Discharge Plan
Departure
Patient Disposition: Home (Routine Discharge)
Date of Disposition: 07/06/23
Time of Disposition: 21:12
Patient with high blood pressure during this ER visit?: Yes
Condition: Good
Covid-19: Not Applicable
Discharge Problem:
Chest pain
Instructions: Chest Pain (DC), Chest Pain PCP Follow Up, BLOOD PRESSURE
Prescriptions:
No Action
. Bp Pill
5 mg PO DAILY
Referrals:
Sonia Falcon MD, Resident [Family Provider] - Follow up in 2-3 days
Activity Restrictions/Additional Instructions:
As discussed, your blood work is all normal. Your ECG is normal. Please take the medication you were given by the PCP. Follow up with the PCP in the next 2-3 days for recheck. IF YOU HAVE INCREASED BLEEDING WITH YOUR STOOLS, INCREASED OR CHANGING
CHEST PAIN, OR YOU HAVE ANY OTHER CONCERNS PLEASE RETURN TO THE EMERGENCY ROOM.
Interventions
Interventions:
*Risk Screen - Suicide Last Done: 07/06/23 19:19
*General Assessment Last Done: 07/06/23 19:21
*Neglect/Abuse Screening Last Done: 07/06/23 19:19
ED- Fall Risk Assessment Last Done: 07/06/23 20:27
*ED COVID-19 Vaccine History Last Done: 07/06/23 20:27
ED- Neurological Assessment Last Done: 07/06/23 20:27
ED- Cardiac Assessment Last Done: 07/06/23 20:27
Discharge Date and Time
Print Language: TELUGU
== END 2023-07-06 21:33 | disposition home or self-care (01) ==
LOC: EMR 19:09
PROVIDERS: Emergency Medicine; EMERGENCY PHYSICIAN Emergency Medicine; FAMILY PHYSICIAN Student in an Organized Health Care Education/Training Program
DX: R07.89 Other chest pain (principal); R42 Dizziness and giddiness; I10 Essential (primary) hypertension; F17.290 Nicotine dependence, other tobacco product, uncomplicated; Z87.442 Personal history of urinary calculi
CPT/HCPCS: 99283; 80053; 84484; 85025; 93005

== ENCOUNTER → 2023-07-18 08:15 | Outpatient (REF) | payer OTHER, SELFPAY | LOC: RAD 08:15 | PROVIDERS: ATTENDING PHYSICIAN Student in an Organized Health Care Education/Training Program | DX: R82.5 Elevated urine levels of drugs, medicaments and biological substances (principal); I15.9 Secondary hypertension, unspecified; D3A.8 Other benign neuroendocrine tumors | CPT/HCPCS: 78831; A9572 ==

== ENCOUNTER → 2023-08-05 09:15 | Outpatient (REF) | payer OTHER, SELFPAY | LOC: RCS 09:15 | PROVIDERS: ATTENDING PHYSICIAN Student in an Organized Health Care Education/Training Program | DX: R07.9 Chest pain, unspecified (principal); I15.9 Secondary hypertension, unspecified; R00.2 Palpitations | CPT/HCPCS: 93225; 93226 ==

== ENCOUNTER → 2023-08-25 12:53 | Outpatient (REF) | payer OTHER, SELFPAY | LOC: RCS 12:53 | PROVIDERS: ATTENDING PHYSICIAN Student in an Organized Health Care Education/Training Program | DX: R00.2 Palpitations (principal); R07.2 Precordial pain; I10 Essential (primary) hypertension | CPT/HCPCS: 93017 ==

== ENCOUNTER → 2023-09-02 10:24 | Outpatient (REF) | payer OTHER, SELFPAY | LOC: RAD 10:24 | PROVIDERS: ATTENDING PHYSICIAN Student in an Organized Health Care Education/Training Program | DX: R42 Dizziness and giddiness (principal); Q07.00 Arnold-Chiari syndrome without spina bifida or hydrocephalus | CPT/HCPCS: 93880 ==

== ENCOUNTER → 2023-10-03 06:55 | Outpatient (REF) | payer OTHER, SELFPAY | LOC: RAD 06:55 | PROVIDERS: ATTENDING PHYSICIAN Student in an Organized Health Care Education/Training Program | DX: I15.9 Secondary hypertension, unspecified (principal) | CPT/HCPCS: 93975 ==

== ENCOUNTER → 2024-02-02 13:26 | Outpatient (REF) | payer OTHER, SELFPAY | LOC: RCS 13:26 | PROVIDERS: ATTENDING PHYSICIAN Internal Medicine; FAMILY PHYSICIAN Student in an Organized Health Care Education/Training Program | DX: R07.9 Chest pain, unspecified (principal) | CPT/HCPCS: 93017; 93350 ==

== ENCOUNTER → 2024-02-08 16:00 | Outpatient (REF) | payer OTHER, SELFPAY | LOC: HWRCS 16:00 | PROVIDERS: ATTENDING PHYSICIAN Internal Medicine; FAMILY PHYSICIAN Student in an Organized Health Care Education/Training Program | DX: R07.9 Chest pain, unspecified (principal) | CPT/HCPCS: 93306 ==